=== PATIENT | female | born 1940 | race Caucasian/White ===

== ENCOUNTER 2016-03-19 20:03 | Emergency (ER) | payer OTHER ==
[~2016-03-19] VITALS: Ht 157.5 cm; Wt 82.8 kg
[~2016-03-19 20:03] MED LIST: ADVIL PM1 TABLET PO; ADVIL200 MG PO; ALBUTEROL2.5 MG/3 M IH; ASPIR 8181 M1 PO; ASPIR-LOW81 M1 PO; ASPIRIN325 MG PO; BENTYL20 MG PO; CELEXA20 MG PO; CETIRIZINE HCL10 M2 PO; CITALOPRAM HBR20 MG PO; CRESTOR40 MG PO; CYCLOCORT TP; DICYCLOMINE HCL20 MG PO; Ecotrin PO; FLONASE16 G1 BOTH NARES; FLOVENT 11120 INHALA IH; FLOVENT DISKUS1 DIS2 IH; HYDROCHLOROTH12.5 MG PO; HYDROCHLOROTHIA25 MG PO; LISINOPRIL40 MG PO; LO-DOSE ASPIRIN81 M1 PO; LOPRESSOR50 MG PO; METOPROLOL SUCC25 MG PO; MOBIC7.5 MG PO; MULTIVITAMIN1 EAC2 PO; NITROGLYCERIN0.4 MG SL; NITROSTAT0.4 MG SL; OMEGA 3-6-9 11200 MG PO; OMEGA 3-6-91200 MG PO; OMEGA-3100 MG PO; OXYBUTYNIN CHLO10 MG PO; OXYBUTYNIN CHLOR5 M1 PO; OXYBUTYNIN CHLOR5 MG PO; PLAVIX75 MG PO; PRILOSEC20 MG PO; PROTONIX40 MG PO; SIMVASTATIN80 MG PO; SPIRONOLACT/HC1 EACH PO; SPIRONOLACTONE25 MG PO; TIZANIDINE HCL4 MG PO; TOPROL XL50 MG PO; TRAMADOL HCL50 MG PO; ULTRAM50 MG PO; ZESTRIL,PRINIVI40 MG PO; ZESTRIL40 MG PO; ZOLPIDEM TARTRA10 MG PO; ZYRTEC10 M1 PO; ZYRTEC10 M2 PO
[2016-03-19] MEDS ORDERED: LISINOPRIL40 MG PO (22:33)
[2016-03-19] MEDS ORDERED: CITALOPRAM HBR20 MG PO (22:34)
[2016-03-19] MEDS ORDERED: CARVEDILOL25 MG PO (22:35)
[2016-03-19] MEDS ORDERED: MYRBETRIQ50 MG PO (23:35)
[2016-03-19] MEDS ORDERED: SPIRONOLACTONE25 MG PO (23:35)
[2016-03-19] MEDS ORDERED: BENZONATATE100 MG PO (23:38)
[2016-03-19] MEDS ORDERED: HYDROCHLOROTHIA25 MG PO (23:38)
[2016-03-19] MEDS ORDERED: OMEPRAZOLE20 MG PO (23:39)
[2016-03-19] MEDS ORDERED: TRAMADOL HCL50 MG PO (23:39)
[2016-03-19] MEDS ORDERED: LO-DOSE ASPIRIN81 M2 PO (23:40)
[2016-03-19] MEDS ORDERED: CELEBREX50 MG PO (23:41)
[2016-03-19] MEDS ORDERED: FLONASE16 G1 BOTH NARES (23:41)
[2016-03-19] MEDS ORDERED: PERCOCET 5/31 TABLET PO (23:43)
[2016-03-20] MEDS ORDERED: ZOFRAN4 MG PO (00:46)
[2016-03-20 00:59] VITALS: BP 126/75
== END 2016-03-20 01:04 | disposition home or self-care (01) ==
LOC: EME → EDBD 20:03 → EME 03-20 01:04
DX: S42.221A 2-part displaced fracture of surgical neck of right humerus, initial encounter for closed fracture (principal); S42.251A Displaced fracture of greater tuberosity of right humerus, initial encounter for closed fracture; W18.39XA Other fall on same level, initial encounter; Y93.K1 Activity, walking an animal; I10 Essential (primary) hypertension; J45.909 Unspecified asthma, uncomplicated; E78.5 Hyperlipidemia, unspecified; G89.29 Other chronic pain; Z79.891 Long term (current) use of opiate analgesic; Z79.82 Long term (current) use of aspirin; Z79.02 Long term (current) use of antithrombotics/antiplatelets; Z95.5 Presence of coronary angioplasty implant and graft; Z95.0 Presence of cardiac pacemaker
CPT/HCPCS: 71010; 73030; 99281; 99285

== ENCOUNTER 2016-03-21 13:08 | Inpatient (IN) | payer OTHER ==
[~2016-03-21] VITALS: Ht 157.5 cm; Wt 84.8 kg
[~2016-03-21 13:08] MED LIST changes: +BENZONATATE100 MG PO; +CARVEDILOL25 MG PO; +CELEBREX50 MG PO; +LO-DOSE ASPIRIN81 M2 PO; +MYRBETRIQ50 MG PO; +OMEPRAZOLE20 MG PO; +PERCOCET 5/31 TABLET PO; +ZOFRAN4 MG PO
[2016-03-21 14:59] LABS: MCH 30.2 PG (29.0-34.0); MCHC 33.7 G/DL (30.0-36.0); MCV 89.5 FL (83-99); MEAN PLAT.VOLUME 12.1 uM^3 (9.5-12.4); PLATELET COUNT 143 K/uL (156-360); RBC DIS.WIDTH-CV 13.1 % (11.8-14.6); RBC DIS.WIDTH-SD 41.4 % (39-53); RED BLOOD COUNT 3.91 M/uL (3.80-5.20); WHITE BLOOD COUNT 15.8 K/uL (4.1-10.2)
[2016-03-21 15:12] LABS: CHLORIDE 99 mEq/L (99-109); POTASSIUM 4.7 mEq/L (3.7-5.4); SODIUM 131 mEq/L (136-147)
[2016-03-21 15:14] LABS: GLUCOSE 127 mg/dL (70-99)
[2016-03-21 15:16] LABS: ANION GAP 10 MEQ/L (2-14); TOTAL BILIRUBIN 1.1 mg/dL (0.0-1.0)
[2016-03-21 15:18] LABS: ALKALINE PHOSPHATASE 76 IU/L (3-129); GFR ESTIMATE (CALCULATED) 29 mL/min/
[2016-03-21 15:19] LABS: UREA NITROGEN (BUN) 34 mg/dL (9-23)
[2016-03-21 15:27] LABS: TROP-I INTERPRETATION NEGATIVE; TROPONIN-I < 0.01 ng/mL (0.0-0.30)
[2016-03-21 16:34] LABS: EOSINOPHIL (%) 0.3 % (0-5); EOSINOPHIL COUNT 0.1 K/uL (0-0.3); HEMATOLOGY COMMENT 1 SMEAR COMPATIBLE; IMMATURE GRANULOCYTE (%) 0.2 % (0.0-0.7); IMMATURE GRANULOCYTE COUNT 0.3 K/uL; LYMPHOCYTE COUNT 1.3 K/uL (1.0-2.8); MONOCYTE (%) 12.6 % (3-12); NEUTROPHIL (%) 78.7 % (45-76); NEUTROPHIL COUNT 12.5 K/uL (1.8-6.4); PLAT.SUFFICIENCY DECREASED
[2016-03-21 17:39] LABS: ADD MIUA? YES; BILIRUBIN NEGATIVE; BLOOD NEGATIVE; COLOR YELLOW ((YELLOW)); GLUCOSE (STRIP) NEGATIVE; KETONES NEGATIVE; LEUKOCYTES MODERATE; NITRITE NEGATIVE; PROTEIN (STRIP) NEGATIVE; SPECIFIC GRAVITY 1.015 (1.000-1.030); UROBILINOGEN 0.2 MG/DL (0.2-1.0)
[2016-03-21 18:00] LABS: RED BLOOD CELLS 0-5 /HPF (0-5)
[2016-03-21 18:01] LABS: BACTERIA 2+; EPITHELIAL CELLS 1+; MUCUS RARE; UCUL ADDED? YES; WHITE BLOOD CELLS 15-20 /HPF (0-5)
[2016-03-21 18:02] LABS: CALCIUM OXALATE CRYSTALS 1+; CASTS NONE SEEN /LPF; CRYSTALS PRESENT
[2016-03-21 18:03] LABS: OTHER BUDDING YEAST
[2016-03-21 21:33] LABS: TROP-I INTERPRETATION NEGATIVE; TROPONIN-I < 0.01 ng/mL (0.0-0.30)
[2016-03-21 21:47] VITALS: BP 112/50
[2016-03-22 04:00] LABS: HEMATOCRIT 29.9 % (36.0-46.0); MCH 29.2 PG (29.0-34.0); MCHC 32.1 G/DL (30.0-36.0); MCV 90.9 FL (83-99); MEAN PLAT.VOLUME 12.2 uM^3 (9.5-12.4); PLATELET COUNT 121 K/uL (156-360); RBC DIS.WIDTH-CV 13.1 % (11.8-14.6); RBC DIS.WIDTH-SD 41.9 % (39-53); RED BLOOD COUNT 3.29 M/uL (3.80-5.20); WHITE BLOOD COUNT 9.3 K/uL (4.1-10.2)
[2016-03-22 04:05] LABS: CHLORIDE 105 mEq/L (99-109); POTASSIUM 4.9 mEq/L (3.7-5.4); SODIUM 133 mEq/L (136-147)
[2016-03-22 04:07] LABS: GLUCOSE 100 mg/dL (70-99)
[2016-03-22 04:09] LABS: ANION GAP 5 MEQ/L (2-14)
[2016-03-22 04:11] LABS: GFR ESTIMATE (CALCULATED) > 59 mL/min/
[2016-03-22 04:12] LABS: UREA NITROGEN (BUN) 22 mg/dL (9-23)
[2016-03-22 04:17] LABS: TROP-I INTERPRETATION NEGATIVE; TROPONIN-I < 0.01 ng/mL (0.0-0.30)
[2016-03-22 04:27] VITALS: BP 131/61
[2016-03-22 07:20] LABS: POINT-OF-CARE METER ID UU14162513
[2016-03-22 08:26] VITALS: BP 140/67
[2016-03-22 11:53] VITALS: BP 135/60
[2016-03-22 16:15] VITALS: BP 117/58
[2016-03-23] VITALS: BP 123/58
[2016-03-23 04:43] VITALS: BP 137/66
[2016-03-23 12:18] VITALS: BP 114/58
[2016-03-23 15:45] VITALS: BP 132/63
[2016-03-23 21:42] VITALS: BP 145/72
[2016-03-24 01:35] VITALS: BP 127/58
[2016-03-24 05:19] VITALS: BP 137/65
[2016-03-24 09:12] VITALS: BP 145/74
[2016-03-24 11:48] VITALS: BP 105/57
[2016-03-24 14:19] VITALS: BP 121/57
== END 2016-03-24 16:08 | disposition short-term general hospital (02) | DRG 683 ==
LOC: EME → EDBD 13:08 → EDOF 19:53 → 5WEST 19:53
PROVIDERS: Emergency Medicine; Hospitalist
DX: N17.9 Acute kidney failure, unspecified (principal); N39.0 Urinary tract infection, site not specified; I42.9 Cardiomyopathy, unspecified; Z95.5 Presence of coronary angioplasty implant and graft; R55 Syncope and collapse; I25.10 Atherosclerotic heart disease of native coronary artery without angina pectoris; I95.9 Hypotension, unspecified; M25.511 Pain in right shoulder; E86.0 Dehydration; E78.5 Hyperlipidemia, unspecified; D50.0 Iron deficiency anemia secondary to blood loss (chronic); E66.01 Morbid (severe) obesity due to excess calories; R74.0 Nonspecific elevation of levels of transaminase and lactic acid dehydrogenase [LDH]; D69.6 Thrombocytopenia, unspecified; S42.301D Unspecified fracture of shaft of humerus, right arm, subsequent encounter for fracture with routine healing; Z88.6 Allergy status to analgesic agent; Z95.810 Presence of automatic (implantable) cardiac defibrillator; I25.5 Ischemic cardiomyopathy; I11.9 Hypertensive heart disease without heart failure; I44.7 Left bundle-branch block, unspecified
CPT/HCPCS: 71010; 80048; 80053; 81003; 82948; 83605; 84484; 85025; 85027; 87040; 87086; 93005; 99281; 99285; G0378; G8978 GP CK; G8979 CJ; J0696; J1170; J1644; J2405; J7030; J7040; J7050

== ENCOUNTER 2016-05-28 14:38 | Emergency (ER) | payer OTHER ==
[~2016-05-28] VITALS: Ht 165.1 cm; Wt 92.4 kg
[2016-05-28 15:04] LABS: HEMATOCRIT 41.6 % (36.0-46.0); MCH 28.8 PG (29.0-34.0); MCHC 32.2 G/DL (30.0-36.0); MCV 89.5 FL (83-99); MEAN PLAT.VOLUME 11.6 uM^3 (9.5-12.4); PLATELET COUNT 207 K/uL (156-360); RBC DIS.WIDTH-CV 13.5 % (11.8-14.6); RBC DIS.WIDTH-SD 44.2 % (39-53); RED BLOOD COUNT 4.65 M/uL (3.80-5.20)
[2016-05-28 15:13] LABS: CHLORIDE 105 mEq/L (99-109); POTASSIUM 4.6 mEq/L (3.7-5.4); SODIUM 136 mEq/L (136-147)
[2016-05-28 15:15] LABS: GLUCOSE 77 mg/dL (70-99)
[2016-05-28 15:16] LABS: ANION GAP 11 MEQ/L (2-14)
[2016-05-28 15:19] LABS: GFR ESTIMATE (CALCULATED) > 59 mL/min/
[2016-05-28 15:20] LABS: UREA NITROGEN (BUN) 17 mg/dL (9-23)
[2016-05-28 15:26] LABS: TROP-I INTERPRETATION NEGATIVE; TROPONIN-I < 0.01 ng/mL (0.0-0.30)
[2016-05-28 17:31] VITALS: BP 160/86
== END 2016-05-28 17:33 | disposition home or self-care (01) ==
LOC: EME 14:38
PROVIDERS: Emergency Medicine
DX: R55 Syncope and collapse (principal); E78.5 Hyperlipidemia, unspecified; I10 Essential (primary) hypertension; I25.2 Old myocardial infarction; K21.9 Gastro-esophageal reflux disease without esophagitis; G89.29 Other chronic pain; Z86.73 Personal history of transient ischemic attack (TIA), and cerebral infarction without residual deficits; Z98.61 Coronary angioplasty status; Z95.0 Presence of cardiac pacemaker; Z79.82 Long term (current) use of aspirin; Z96.611 Presence of right artificial shoulder joint
CPT/HCPCS: 70450; 80048; 84484; 85027; 93005; 99281; 99285